=== PATIENT | male | born 1980 | race American Indian/Alaskan Native ===

== ENCOUNTER 2022-02-05 23:10 | Emergency (ER) | payer SELFPAY ==
[2022-02-06] MEDS ORDERED: KETOROLAC 30 MG/1 ML INJ IV ONE (00:31)
[2022-02-06] MEDS ORDERED: SODIUM CHLORIDE 0.9% 1000 ML 1,000 ML IV ONE (00:31)
--- NOTE | 2022-02-06 01:02 | XRay Report ---
XR chest 1V ap INDICATION / CLINICAL INFORMATION: Back Pain; CHEST PAIN. COMPARISON: None available. FINDINGS: SUPPORT DEVICES: None. HEART /PULMONARY VASCULATURE: No significant abnormality. LUNGS / PLEURA: No significant pulmonary or pleural abnormality. No pneumothorax. ADDITIONAL FINDINGS: No significant additional findings. IMPRESSION: 1. No acute findings. Signer Name: Cyril Eaton MD Signed: 02/06/2022 12:57 AM Workstation Name: [id number]
[2022-02-06 01:15] LABS: Alanine Aminotransferase 15 units/L (7-56); Albumin 4.3 g/dL (3.9-5); BUN/Creatinine Ratio 13; Blood Urea Nitrogen 10 mg/dL (9-20); Calcium 8.8 mg/dL (8.4-10.2); Hemolysis Index 19
[2022-02-06 01:32] LABS: Basophils # (Auto) 0.1 K/mm3 (0.0-0.1); Basophils % (Auto) 0.6 % (0.0-1.8); Eosinophils % (Auto) 0.4 % (0.0-4.3); Hematocrit 43.1 % (35.5-45.6); Hemoglobin 14.1 gm/dl (11.8-15.2); Lymphocytes # (Auto) 0.3 K/mm3 (1.2-5.4); Mean Corpuscular HGB Conc 33 % (32-34); Mean Corpuscular Volume 92 fl (84-94); Monocytes # (Auto) 0.9 K/mm3 (0.0-0.8); Monocytes % (Auto) 9.7 % (0.0-7.3); Platelet Count 202 K/mm3 (140-440); Red Cell Distribution Width 14.9 % (13.2-15.2)
[2022-02-06 03:43] LABS: Amphetamine Screen,Urine PRESUMPTIVE NEGATIVE; Benzodiazepines Screen,Urine PRESUMPTIVE NEGATIVE; Cannabinoid Screen,Urine PRESUMPTIVE POSITIVE; Cocaine Screen,Urine PRESUMPTIVE NEGATIVE; Methadone Screen,Urine PRESUMPTIVE NEGATIVE; Opiate Screen,Urine PRESUMPTIVE NEGATIVE
[2022-02-06 04:15] LABS: Mucus,Urine 3+ /HPF
[2022-02-06 04:25] LABS: Color,Urine Yellow (Yellow)
[2022-02-06 04:26] LABS: Bilirubin,Urine Negative (Negative)
[2022-02-06 04:27] LABS: Blood,Urine Negative (Negative); Urobilinogen,Urine 0.2 mg/dL (<2.0)
[2022-02-06] MEDS ORDERED: dexAMETHasone 4 MG/ML VIAL IV ONE (04:38)
--- NOTE | 2022-02-06 04:42 | Emergency Department Report ---
ED General Adult HPI - General Chief complaint: Pain General Stated complaint: BODY PAIN GENERAL ILLNESS Time Seen by Provider: 02/06/22 00:31 Source: patient Mode of arrival: Stretcher Limitations: No Limitations - History of Present Illness Initial comments: Onset of bodypain since 0800 in religious today. Pain mostly in lower back and radiating to legs. Also headache. -: Gradual, hour(s) Location: head, back Radiation: non-radiation Severity scale (0 -10): 3 Quality: aching Consistency: constant Improves with: none Associated Symptoms: headaches, malaise, weakness. denies: loss of appetite Treatments Prior to Arrival: none - Related Data Previous Rx's Medication Instructions Recorded Last Taken Type Amoxicillin/K Clav Tab [Augmentin 1 tab PO Q12HR #14 tab 02/06/22 Unknown Rx 875 mg] Ketorolac [Toradol] 10 mg PO Q6H PRN #10 02/06/22 Unknown Rx Allergies Allergy/AdvReac Type Severity Reaction Status Date / Time No Known Allergies Allergy Unverified 02/06/22 00:23 ED Review of Systems ROS: Stated complaint: BODY PAIN GENERAL ILLNESS Other details as noted in HPI Constitutional: denies: chills, fever Eyes: denies: eye pain, eye discharge, vision change ENT: denies: ear pain, throat pain Respiratory: denies: cough, shortness of breath, wheezing Cardiovascular: denies: chest pain, palpitations Endocrine: no symptoms reported Gastrointestinal: denies: abdominal pain, nausea, diarrhea Genitourinary: denies: urgency, dysuria Musculoskeletal: denies: back pain, joint swelling, arthralgia Skin: denies: rash, lesions Neurological: denies: headache, weakness, paresthesias Psychiatric: denies: anxiety, depression Hematological/Lymphatic: denies: easy bleeding, easy bruising ED Past Medical Hx - Past Medical History Previous Medical History?: No Hx Hypertension: No - Surgical History Past Surgical History?: No - Social History Smoking Status: Never Smoker Substance Use Type: None - Medications Home Medications: Home Medications Medication Instructions Recorded Confirmed Last Taken Type Amoxicillin/K Clav Tab [Augmentin 1 tab PO Q12HR #14 tab 02/06/22 Unknown Rx 875 mg] Ketorolac [Toradol] 10 mg PO Q6H PRN #10 02/06/22 Unknown Rx ED Physical Exam - General Limitations: No Limitations General appearance: alert, in no apparent distress - Head Head exam: Present: atraumatic, normocephalic - Eye Eye exam: Present: normal appearance - ENT ENT exam: Present: mucous membranes moist - Neck Neck exam: Present: normal inspection - Respiratory Respiratory exam: Present: normal lung sounds bilaterally. Absent: respiratory distress - Cardiovascular Cardiovascular Exam: Present: regular rate, normal rhythm. Absent: systolic murmur, diastolic murmur, rubs, gallop - GI/Abdominal GI/Abdominal exam: Present: soft, normal bowel sounds - Rectal Rectal exam: Present: deferred - Extremities Exam Extremities exam: Present: normal inspection - Back Exam Back exam: Present: normal inspection - Neurological Exam Neurological exam: Present: alert, oriented X3 - Psychiatric Psychiatric exam: Present: normal affect, normal mood - Skin Skin exam: Present: warm, dry, intact, normal color. Absent: rash ED Course Vital Signs 02/05/22 23:11 Temperature 98.2 F Pulse Rate 66 Respiratory 18 Rate Blood Pressure 158/60 O2 Sat by Pulse 100 Oximetry ED Medical Decision Making - Lab Data Result diagrams: 02/06/22 00:36 02/06/22 00:36 Critical care attestation.: If time is entered above; I have spent that time in minutes in the direct care of this critically ill patient, excluding procedure time. ED Disposition Clinical Impression: Viral illness, Body aches Disposition: 01 HOME / SELF CARE / HOMELESS Is pt being admited?: No Does the pt Need Aspirin: No Condition: Stable Prescriptions: Amoxicillin/K Clav Tab [Augmentin 875 mg] 1 tab PO Q12HR #14 tab Ketorolac [Toradol] 10 mg PO Q6H PRN #10 PRN Reason: Pain Referrals: MARK ARDON MD [Primary Care Provider] - 3-5 Days
[2022-02-06] MEDS ORDERED: ONDANSETRON 4 MG ODT TAB PO ONE (05:24)
[2022-02-06 05:26] VITALS: BP 126/76
== END 2022-02-06 05:26 | disposition home or self-care (01) ==
LOC: ED 23:10
DX: B34.9 Viral infection, unspecified (principal); M79.10 Myalgia, unspecified site; Z79.899 Other long term (current) drug therapy
CPT/HCPCS: 36415; 71045; 80053; 80307; 81001; 85025; 86140; 96361; 96374; 96375; 99284; J1100; J1885; J7030; J3490; Q0162